=== PATIENT | male | born 1965 | race Caucasian/White ===

== ENCOUNTER 2019-07-24 08:23 | Emergency (ER) | payer OTHER ==
[~2019-07-24] VITALS: Ht 170.2 cm; Wt 76.1 kg
[2019-07-24 08:26] VITALS: BP 138/64; PULSE 68; RESP 17; Ht 170.2 cm; Wt 76.1 kg
[2019-07-24] MEDS ORDERED: KETOROLAC 30 MG INJ IM STA (09:07)
== END 2019-07-24 09:22 | disposition home or self-care (01) ==
LOC: FTE 08:23
DX: R51 Headache (principal); M79.10 Myalgia, unspecified site
CPT/HCPCS: 82962; J1885; 96372